=== PATIENT | female | born 1995 | race Caucasian/White ===

== ENCOUNTER 2020-10-21 06:29 | Inpatient (IN) | payer OTHER, MEDICAID ==
[2020-10-21] MEDS ORDERED: Nalbuphine 10 MG/1 ML Vial IVPUSH PRN (07:17)
[2020-10-21] MEDS ORDERED: Ondansetron 4 MG/2 ML SDV IVPUSH PRN ×3 (07:17→15:11)
[2020-10-21] MEDS ORDERED: Misoprostol 25 MCG (1/4 of 100 MCG) Tab VAG PRN (07:17)
[2020-10-21] MEDS ORDERED: Sodium Chloride 0.9% 10 ML Syringe FLUSH PRN (07:17)
--- NOTE | 2020-10-21 07:20 | PCM.LDHP ---
L&D History of Present Illness - General Date of Service: 10/21/20 Admit Problem/Dx: Patient Status Order with Admit Dx/Problem 10/21/20 07:17 Patient Status [ADT] Routine Admission Diagnosis/Problem Admission Diagnosis/Problem Source of Information: Patient History Limitations: Reports: No Limitations - History of Present Illness Introduction:: Patient is a 25 y/o at 41 0/7 wks who presents in labor. Was supposed to come for induction this AM, but started to labor overnight. Doing well. - Related Data Allergies/Adverse Reactions: Allergies Allergy/AdvReac Type Severity Reaction Status Date / Time cefaclor [From Ceclor] Allergy Hives Verified 10/21/20 08:02 Past Medical History HEENT History: Reports: Hard of Hearing : 1 Para: 0 LMP (Approximate): Psychiatric History: Reports: Depression - Past Surgical History Other Surgical History Comment: No past surgical history Social & Family History - Tobacco Use Tobacco Use Status *Q: Never Tobacco User - Alcohol Use Alcohol Use History: No - Recreational Drug Use Recreational Drug Use: No H&P Review of Systems - Review of Systems: Review Of Systems: See Below General: Reports: No Symptoms Pulmonary: Reports: No Symptoms Cardiovascular: Reports: No Symptoms Gastrointestinal: Reports: No Symptoms Genitourinary: Reports: No Symptoms Musculoskeletal: Reports: No Symptoms Psychiatric: Reports: No Symptoms L&D Exam - Exam Exam: See Below - OB Specific Contraction Intensity: Moderate to Strong Movement: Active Heart Tones: Present Heart Tones per Min: 150 Heart Rate (FHR) Variability: Moderate (6-25 bmp) Presentation: Vertex - Richardson Score Richardson Score Cervix Position: Anterior Richardson Score Consistency: Soft Richardson Score Effacement: >80% Richardson Score Dilation: > 5 cm Richardson Score 's Station: -1 ,0 Richardson Score Total: 12 - Exam General: Alert, Oriented, Cooperative Lungs: Clear to Auscultation, Normal Respiratory Effort Cardiovascular: Regular Rate, Regular Rhythm GI/Abdominal Exam: Soft, Non-Tender Genitourinary: Normal external exam Extremities: Normal Inspection Skin: Warm, Dry, Intact - Patient Data Result Diagrams: 10/21/20 07:40 - Problem List (1) 41 weeks gestation of SNOMED Code(s): 03967377 ICD Code: Z3A.41 - 41 WEEKS GESTATION OF Status: Acute Current Visit: Yes (2) Normal labor SNOMED Code(s): 81242363 ICD Code: O80 - ENCOUNTER FOR FULL-TERM UNCOMPLICATED DELIVERY; Z37.9 - OUTCOME OF DELIVERY, UNSPECIFIED Status: Acute Current Visit: Yes Problem List Initiated/Reviewed/Updated: Yes Orders Last 24hrs: Active Orders 24 hr Category Date Time Status Patient Status [ADT] Routine ADT 10/21/20 07:17 Ordered Communication Order [RC] ASDIRECTED Care 10/21/20 07:17 Ordered Communication Order [RC] ASDIRECTED Care 10/21/20 07:17 Ordered Communication Order [RC] ASDIRECTED Care 10/21/20 07:17 Ordered Heart Tones [RC] ASDIRECTED Care 10/21/20 07:17 Ordered Monitoring [RC] INTERMITTENT Care 10/21/20 07:17 Ordered Non Stress Test [RC] PER UNIT ROUTINE Care 10/21/20 07:17 Ordered Notify Provider [RC] ASDIRECTED Care 10/21/20 07:17 Ordered Notify Provider [RC] PRN Care 10/21/20 07:17 Ordered Peripheral IV Care [RC] . DIRECTED Care 10/21/20 07:17 Ordered Vaginal Exam [RC] ASDIRECTED Care 10/21/20 07:17 Ordered Vital Signs [RC] ASDIRECTED Care 10/21/20 07:17 Ordered Regular Diet [DIET] Diet 10/21/20 Breakfast Ordered CBC W/O DIFF,HEMOGRAM [HEME] Routine Lab 10/21/20 07:17 Ordered CORONAVIRUS COVID-19 YEFRI [MOLEC] Stat Lab 10/21/20 07:19 Ordered RAPID PLASMA REAGIN,RPR [CHEM] Routine Lab 10/21/20 07:17 Ordered TYPE AND SCREEN [BBK] Routine Lab 10/21/20 07:17 Ordered Lactated Ringers [Ringers, Lactated] 1,000 ml Med 10/21/20 07:30 Ordered IV ASDIRECTED Nalbuphine [Nubain] Med 10/21/20 07:17 Ordered 10 mg IVPUSH Q2H PRN Ondansetron [Zofran] Med 10/21/20 07:17 Ordered 4 mg IVPUSH Q4H PRN Oxytocin/Lactated Ringers [Pitocin in LR 10 Units/1,000 Med 10/21/20 07:30 Ordered ML] 10 unit in 1,000 ml IV .CONTINUOUS Oxytocin/Lactated Ringers [Pitocin in LR 10 Units/1,000 Med 10/21/20 07:30 Ordered ML] 10 unit in 1,000 ml IV TITRATE Sodium Chloride 0.9% [Saline Flush] Med 10/21/20 07:17 Ordered 10 ml FLUSH ASDIRECTED PRN miSOPROStoL [Cytotec] Med 10/21/20 07:17 Ordered 25 mcg VAG Q4H PRN Electronic Heart Tones Ext w TOCO [WOMSER] Ot 10/21/20 07:17 Ordered Routine Electronic Heart Tones Internal [WOMSER] Per Unit Ot 10/21/20 07:17 Ordered Routine Medication Administration Instruction [OM.PC] Ot 10/21/20 07:30 Ordered ASDIRECTED Peripheral IV Insertion Adult [OM.PC] Routine Ot 10/21/20 07:17 Ordered Resuscitation Status Routine Resus Stat 10/21/20 07:17 Ordered Assessment/Plan Comment:: * Labs done * GBS negative * Epidural for pain management * Anticipate
[2020-10-21] MEDS ORDERED: Oxytocin/Lactated Ringers 10 UNIT/1,000 ML BAG IV SCH ×2 (07:30)
[2020-10-21] MEDS: Lactated Ringers 1,000 ML IV SCH ×5 (07:50→11:30)
[2020-10-21] MEDS ORDERED: fentaNYL 100 MCG/2 ML SDV EPIDUR PRN (07:57)
[2020-10-21] MEDS ORDERED: ePHEDrine 50 MG/ML SDV IVPUSH PRN ×3 (07:57→18:08)
[2020-10-21] MEDS ORDERED: Bupivacaine/fentaNYL/NS 100 ML Bag EPIDUR SCH (08:00)
--- NOTE | 2020-10-21 08:17 | PCM.PREANE ---
Preanesthetic Assessment - Procedure Proposed Procedure: Epidural - Anesthesia/Transfusion/Family Hx Anesthesia History: No Prior Anesthesia Family History of Anesthesia Reaction: No Transfusion History: No Prior Transfusion(s) Intubation History: Unknown - Review of Systems General: No Symptoms Pulmonary: No Symptoms Cardiovascular: No Symptoms (history of heart murmur) Gastrointestinal: No Symptoms Neurological: No Symptoms Other: Reports: None - Physical Assessment NPO Status Date: 10/20/20 NPO Status Time: 20:00 Vital Signs: HR:63 Sat: 99% Temp: 97.7 Resp: 20 B/P: 120/66 Height: 1.52 m Weight: 54.885 kg ASA Class: 2 Mental Status: Alert & Oriented x3 Airway Class: Mallampati = 2 Dentition: Reports: Normal Dentition, Caries Thyro-Mental Finger Breadths: 3 Mouth Opening Finger Breadths: 3 ROM/Head Extension: Full Lungs: Clear to Auscultation, Normal Respiratory Effort Cardiovascular: Regular Rate, Regular Rhythm, No Murmurs - Lab Values: Laboratory Last Values WBC 15.99 K/mm3 (3.98-10.04) H 10/21/20 07:40 RBC 4.50 M/mm3 (3.98-5.22) 10/21/20 07:40 Hgb 12.9 gm/dl (11.2-15.7) 10/21/20 07:40 Hct 37.8 % (34.1-44.9) 10/21/20 07:40 MCV 84.0 fl (79.4-94.8) 10/21/20 07:40 MCH 28.7 pg (25.6-32.2) 10/21/20 07:40 MCHC 34.1 g/dl (32.2-35.5) 10/21/20 07:40 RDW Std Deviation 39.7 fL (36.4-46.3) 10/21/20 07:40 Plt Count 256 K/mm3 (182-369) 10/21/20 07:40 MPV 10.3 fl (9.4-12.3) 10/21/20 07:40 Above labs reviewed and noted and within acceptable ranges to proceed with epidural. - Allergies Allergies/Adverse Reactions: Allergies Allergy/AdvReac Type Severity Reaction Status Date / Time cefaclor [From [facility]] Allergy Hives Verified 10/21/20 08:02 - Anesthesia Plan Pre-Op Medication Ordered: None - Acknowledgements Anesthesia Type Planned: Epidural Pt an Appropriate Candidate for the Planned Anesthesia: Yes Alternatives and Risks of Anesthesia Discussed w Pt/Guardian: Yes Pt/Guardian Understands and Agrees with Anesthesia Plan: Yes PreAnesthesia Questionnaire - CURRENT (IN HOUSE) MEDS Current Meds: Current Medications Ephedrine Sulfate (Ephedrine 50 Mg/Ml Sdv) 5 mg IVPUSH ASDIRECTED PRN PRN Reason: Hypotension Fentanyl (Fentanyl 100 Mcg/2 Ml Sdv) 100 mcg EPIDUR Q3H PRN PRN Reason: Pain Last Admin: 10/21/20 08:12 Dose: 100 mcg Documented by: Fentanyl/Bupivacaine HCl (Bupivacaine/Fentanyl/Ns 100 Ml Bag) 100 ml EPIDUR ASDIRECTED LASHAUN Last Admin: 10/21/20 08:12 Dose: 100 ml Documented by: Oxytocin/Lactated Ringer's (Pitocin In Lr 10 Units/1,000 Ml) 10 unit in 1,000 mls @ 12 mls/hr IV TITRATE LASHAUN; Protocol Oxytocin/Lactated Ringer's (Pitocin In Lr 10 Units/1,000 Ml) 10 unit in 1,000 mls @ 500 mls/hr IV .CONTINUOUS LASHAUN Lactated Ringer's (Ringers, Lactated) 1,000 mls @ 40 mls/hr IV ASDIRECTED LASHAUN Last Admin: 10/21/20 08:13 Dose: 40 mls/hr Documented by: Miscellaneous Medication (Phenylephrine Hcl In 0.9% Nacl 1 Mg/10 Ml Syringe) 0.1 mg IVPUSH Q10M PRN PRN Reason: Hypotension Misoprostol (Misoprostol 25 Mcg (1/4 Of 100 Mcg) Tab) 25 mcg VAG Q4H PRN PRN Reason: cervical ripening Nalbuphine HCl (Nalbuphine 10 Mg/1 Ml Vial) 10 mg IVPUSH Q2H PRN PRN Reason: Pain Ondansetron HCl (Ondansetron 4 Mg/2 Ml Sdv) 4 mg IVPUSH Q4H PRN PRN Reason: Nausea/Vomiting Ondansetron HCl (Ondansetron 4 Mg/2 Ml Sdv) 4 mg IVPUSH ONETIME PRN PRN Reason: Nausea/Vomiting Sodium Chloride (Sodium Chloride 0.9% 10 Ml Syringe) 10 ml FLUSH ASDIRECTED PRN PRN Reason: Keep Vein Open
--- NOTE | 2020-10-21 13:06 | PCM.SN.2 ---
- Free Text/Narrative Note: 1245 AROM done at about 0915 and patient thought to be 9 cm, but with BBOW. After ROM patient thought to be more 8 cm on RN exam. Moved to hands/knees and now thought to be 9 cm, but more noted on patient's left and anterior. Some intermittent late decelerations and variables. Will rotate back to hands/knees and start 1 of pitocin to try and have rest of cervix dilate Tamy Mauro MD
[2020-10-21] MEDS ORDERED: Clindamycin Phosphate in D5W 900 MG in Premix Bag 1 BAG IV ONE ×2 (14:16)
[2020-10-21] MEDS ORDERED: Citric Acid/Sodium Citrate Solution 30 ML Cup PO ONE (14:23)
[2020-10-21] MEDS ORDERED: Metoclopramide 10 MG/2 ML SDV IVPUSH ONE (14:23)
[2020-10-21] MEDS ORDERED: Lactated Ringers 2,000 ML ONE (14:26)
[2020-10-21] MEDS ORDERED: Ondansetron 4 MG/2 ML SDV ONE (14:26)
[2020-10-21] MEDS ORDERED: Lidocaine 2% with EPINEPHrine 1:200,000 20 ML SDV ONE (14:26)
[2020-10-21] MEDS ORDERED: Oxytocin 10 Units/1 ML SDV ONE (14:26)
[2020-10-21] MEDS ORDERED: Ketorolac 30 MG/ML SDV ONE (14:26)
[2020-10-21] MEDS ORDERED: Morphine PF 10 MG/10 ML SDV ONE (14:27)
[2020-10-21] MEDS ORDERED: fentaNYL 100 MCG/2 ML SDV ONE (14:27)
[2020-10-21] MEDS ORDERED: Gentamicin 40 MG/ML 2 ML Vial ONE (14:28)
[2020-10-21] MEDS ORDERED: Azithromycin 500 MG in Sodium Chloride 0.9% 250 ML IV ONE (14:40)
[2020-10-21] MEDS ORDERED: SODIUM CHLORIDE 0.9% IV ONE (15:00)
[2020-10-21] MEDS ORDERED: Bupivacaine 0.25% 10 ML SDV ONE (15:00)
[2020-10-21] MEDS ORDERED: GENTAMICIN IV ONE (15:00)
[2020-10-21] MEDS ORDERED: fentaNYL 100 MCG/2 ML SDV IVPUSH PRN (15:11)
[2020-10-21] MEDS ORDERED: HYDROmorphone 0.5 MG/0.5 ML Syringe IVPUSH PRN (15:11)
[2020-10-21] MEDS ORDERED: diphenhydrAMINE 50 MG/ML SDV IVPUSH PRN ×2 (15:11→18:08)
--- NOTE | 2020-10-21 15:38 | PCM.POSTAN ---
POST ANESTHESIA ASSESSMENT - MENTAL STATUS Mental Status: Alert - VITAL SIGNS Vital Signs: Last Vital Signs Temp 98.2 10/21/20 1531 Pulse 113 10/21/20 1531 Resp 23 10/21/20 1531 BP 126/46 10/21/20 1531 Pulse Ox 99% 10/21/20 1531 - RESPIRATORY Respiratory Status: Respiratory Rate WNL, Airway Patent, O2 Saturation Stable - CARDIOVASCULAR CV Status: Pulse Rate WNL, Blood Pressure Stable - GASTROINTESTINAL GI Status: No Symptoms - POST OP HYDRATION Hydration Status: Adequate & Stable
--- NOTE | 2020-10-21 15:39 | PCM.OPNOTE ---
- General Post-Op/Procedure Note Date of Surgery/Procedure: 10/21/20 Operative Procedure(s): Primary low transverse Findings: Baby boy with weight of 7 lbs 5 oz. APGARS of 1 and 8. Normal appearance of uterus, fallopian tubes, and ovaries . Pre Op Diagnosis: 41 0/7 wks. NRFS. Failed VAVD Post-Op Diagnosis: Same Anesthesia Technique: Epidural Primary Surgeon: Tamy Mauro Secondary Surgeon: Fermin Diaz Anesthesia Provider: Hazel Lopez Reason Ac/Dc Rewinder Was Necessary: Speed and safety of procedure Pathology: Cord gas obtained. Cord blood obtained. Placenta discarded Fluid Replacement, Intraop: 1,050 Output, Urine Amount: 75 EBL in mLs: 500 Complications: None Condition: Good Free Text/Narrative:: The risks, benefits, indications, potential complications, and alternatives were explained to the patient and informed consent obtained. After induction of anesthesia, the patient was placed in a supine position and then draped and prepped in the usual sterile manner. A Pfannenstiel incision was made and carried down through the subcutaneous tissue to the fascia. Fascial incision was made and extended transversely. The fascia was from the underlying rectus tissue superiorly and inferiorly. The peritoneum was identified and entered. Peritoneal incision was extended longitudinally. The utero-vesical peritoneal reflection was incised transversely and the bladder flap was bluntly freed from the lower uterine segment. A low transverse uterine incision was made sharply with a scalpel and extended bluntly in a cephalocaudad direction. A hand placed around head and baby lifted to hysterotomy. Baby did lose tone with this action and began to rotate away from hysterotomy in a clockwise fashion. Attempted once to bring baby back down to hysterotomy, but unsuccessful and so continued to rotate baby and then grasped a foot and delivered baby with standard breech maneuvers. Cord clamped and cut. Baby handed to awaiting Oxyacetylene Cutter/RN. Cord segment obtained for cord gas. Cord blood obtained. The placenta was removed intact and appeared normal. The uterus was exteriorized and cleared of clots. The uterine outline, tubes and ovaries appeared normal. The uterine incision was closed with running locked sutures of 0 Vicryl. Hemostasis was obtained with a second imbricating layer of 0 Vicryl. The uterus was then placed back into the abdomen. The infracolic gutters were cleared of blood clots. Slight oozing noted across hysterotomy. Tyson seal placed across hysterotomy. Hemostasis noted. The fascia was then reapproximated with running sutures of 0 Vicryl. The subcutaneous tissue was irrigated with sterile warm normal saline, hemostasis obtained with cautery. This layer was also closed with a running 0 Vicryl. The skin was reapproximated with running Subcuticular 4-0 Monocryl suture. It was then sealed with Dermabond. Instrument, sponge, and needle counts were correct prior the abdominal closure and at the conclusion of the case.
--- NOTE | 2020-10-21 16:48 | PCM.SN.2 ---
- Free Text/Narrative Note: 1530 (late entry) Patient found to be complete, but with late and variable decelerations noted. Patient began pushing. Decelerations intermittent, but did continue and so OR crew called at 1401 to be on stand by. SVE showed patient to be c/c/+2 station with good pushing effort. Given decelerations attempt made at assisted VAVD. Mushroom cup applied at 1411. Assistance given with the next 2 contractions and pop off occurred at 1415. Vacuum reapplied and with next contraction assistance given. Pop off occurred at 1418. Total pressure 550 mm Hg. head brought down significantly, but still with decelerations noted. Patient encouraged to continue pushing while Clindamycin and Gentamicin given. Unfortunately given tracing did not feel enough time to allow patient to continue to push on her own. Reviewed risks/benefits of delivery and she agreed to proceed. Moved to OR at 1429. See operative note for delivery. Tamy Mauro MD
[2020-10-21] MEDS ORDERED: Dextrose 5%-Lactated Ringers 1,000 ML IV SCH (18:08)
[2020-10-21] MEDS ORDERED: Acetaminophen/oxyCODONE 325-5 MG Tab PO PRN (18:08)
[2020-10-21] MEDS: Ketorolac 30 MG/ML SDV IVPUSH SCH (20:49)
[2020-10-22] MEDS: Ketorolac 30 MG/ML SDV IVPUSH SCH ×2 (03:35→09:15)
--- NOTE | 2020-10-22 08:53 | PCM.PNPP ---
- General Info Date of Service: 10/22/20 Functional Status: Reports: Pain Controlled, Tolerating Diet, Ambulating - Review of Systems General: Reports: No Symptoms Pulmonary: Reports: No Symptoms Cardiovascular: Reports: No Symptoms Gastrointestinal: Reports: Abdominal Pain (managed with medications ) Genitourinary: Reports: No Symptoms Musculoskeletal: Reports: No Symptoms Neurological: Reports: No Symptoms - Patient Data Vital Signs - Most Recent: Last Vital Signs Temp 36.6 C 10/22/20 00:11 Pulse 90 10/22/20 07:00 Resp 16 10/22/20 07:00 BP 92/54 L 10/22/20 01:36 Pulse Ox 99 10/22/20 07:00 Weight - Most Recent: 54.885 kg I&O - Last 24 Hours: Intake & Output 10/21/20 10/22/20 10/22/20 22:59 06:59 14:59 Intake Total 1800 1002 Output Total 1455 2300 275 Balance 283 -6447 -473 Lab Results - Last 24 Hours: Laboratory Results - last 24 hr 10/21/20 10/21/20 10/22/20 Range/Units 07:10 14:55 05:15 WBC 18.81 H (3.98-10.04) K/mm3 RBC 3.15 L (3.98-5.22) M/mm3 Hgb 9.1 L D (11.2-15.7) gm/dl Hct 27.0 L (34.1-44.9) % MCV 85.7 (79.4-94.8) fl MCH 28.9 (25.6-32.2) pg MCHC 33.7 (32.2-35.5) g/dl RDW Std Deviation 39.5 (36.4-46.3) fL Plt Count 188 (182-369) K/mm3 MPV 10.5 (9.4-12.3) fl Cord ABG pH 6.86 L (7.22-7.32) Cord ABG pCO2 106.6 H (42-58) Cord ABG pO2 9 L (12-24) Cord ABG HCO3 18 L (24-26) Cord ABG Base Excess -21.9 L (-5.5-0.1) Cord VBG pH 7.05 L (7.28-7.40) Cord VBG pCO2 64.5 H (32.8-38.6) Cord VBG pO2 35 H (28-32) Cord VBG HCO3 16.9 L (19-24) Cord VBG Base Excess -16.1 L (-4.4-0.4) Blood Type A NEGATIVE Gel Antibody Screen Negative Rhogam Indicated Yes, baby rh pos H Med Orders - Current: Current Medications Diphenhydramine HCl (Diphenhydramine 50 Mg/Ml Sdv) 25 mg IVPUSH Q6H PRN PRN Reason: pruritis Diphenhydramine HCl (Diphenhydramine 50 Mg/Ml Sdv) 25 mg IVPUSH Q6H PRN PRN Reason: Itching or Nausea Docusate Sodium (Docusate Sodium 100 Mg Cap) 100 mg PO Q12H PRN PRN Reason: Constipation Ephedrine Sulfate (Ephedrine 50 Mg/Ml Sdv) 5 mg IVPUSH ASDIRECTED PRN PRN Reason: Hypotension Ephedrine Sulfate (Ephedrine 50 Mg/Ml Sdv) 5 mg IVPUSH SEECOMMENT PRN PRN Reason: Other Fentanyl (Fentanyl 100 Mcg/2 Ml Sdv) 50 mcg IVPUSH Q20M PRN PRN Reason: Pain Hydromorphone HCl (Hydromorphone 0.5 Mg/0.5 Ml Syringe) 0.5 mg IVPUSH Q10M PRN PRN Reason: Pain (severe 7-10) Ibuprofen (Ibuprofen 600 Mg Tab) 600 mg PO Q6H PRN PRN Reason: mild pain or fever Ketorolac Tromethamine (Ketorolac 30 Mg/Ml Sdv) 30 mg IVPUSH Q6H LASHAUN Stop: 10/22/20 09:16 Last Admin: 10/22/20 03:35 Dose: 30 mg Documented by: Miscellaneous Medication (Phenylephrine Hcl In 0.9% Nacl 1 Mg/10 Ml Syringe) 0.1 mg IVPUSH Q10M PRN PRN Reason: Hypotension Ondansetron HCl (Ondansetron 4 Mg/2 Ml Sdv) 4 mg IVPUSH ONETIME PRN PRN Reason: Nausea/Vomiting Oxycodone/Acetaminophen (Acetaminophen/Oxycodone 325-5 Mg Tab) 1 tab PO Q4H PRN PRN Reason: Pain (moderate 4-6) Oxycodone/Acetaminophen (Acetaminophen/Oxycodone 325-5 Mg Tab) 2 tab PO Q4H PRN PRN Reason: Pain (severe 7-10) Discontinued Medications Citric Acid/Sodium Citrate (Citric Acid/Sodium Citrate Solution 30 Ml Cup) 30 ml PO ONETIME ONE Stop: 10/21/20 14:24 Last Admin: 10/21/20 14:30 Dose: 30 ml Documented by: Ephedrine Sulfate (Ephedrine 50 Mg/Ml Sdv) 5 mg IVPUSH ASDIRECTED PRN PRN Reason: Hypotension Last Admin: 10/21/20 09:26 Dose: 5 mg Documented by: Fentanyl (Fentanyl 100 Mcg/2 Ml Sdv) 100 mcg EPIDUR Q3H PRN PRN Reason: Pain Last Admin: 10/21/20 08:12 Dose: 100 mcg Documented by: Fentanyl (Fentanyl 100 Mcg/2 Ml Sdv) Confirm Administered Dose 100 mcg .ROUTE .STK-MED ONE Stop: 10/21/20 14:28 Fentanyl/Bupivacaine HCl (Bupivacaine/Fentanyl/Ns 100 Ml Bag) 100 ml EPIDUR ASDIRECTED [facility] Last Admin: 10/21/20 08:12 Dose: 100 ml Documented by: Gentamicin Sulfate (Pharmacy To Dose - Gentamicin) 1 dose .XX ASDIRECTED [facility] Gentamicin Sulfate (Gentamicin 40 Mg/Ml 2 Ml Vial) Confirm Administered Dose 80 mg .ROUTE .STK-MED ONE Stop: 10/21/20 14:29 Last Admin: 10/21/20 19:44 Dose: Not Given Documented by: Oxytocin/Lactated Ringer's (Pitocin In Lr 10 Units/1,000 Ml) 10 unit in 1,000 mls @ 12 mls/hr IV TITRATE LASHAUN; Protocol Last Admin: 10/21/20 13:27 Dose: 2 munits/min, 12 mls/hr Documented by: Oxytocin/Lactated Ringer's (Pitocin In Lr 10 Units/1,000 Ml) 10 unit in 1,000 mls @ 500 mls/hr IV .CONTINUOUS LASHAUN Lactated Ringer's (Ringers, Lactated) 1,000 mls @ 40 mls/hr IV ASDIRECTED LASHAUN Last Admin: 10/21/20 11:30 Dose: 40 mls/hr Documented by: Clindamycin Phosphate 900 mg/ (Premix) 50 mls @ 100 mls/hr IV ONETIME ONE Stop: 10/21/20 14:45 Last Admin: 10/21/20 14:17 Dose: 100 mls/hr Documented by: Lactated Ringer's (Ringers, Lactated) Confirm Administered Dose 2,000 mls @ as directed .ROUTE .STK-MED ONE Stop: 10/21/20 14:27 Gentamicin Sulfate 275 mg/ (Sodium Chloride) 106.875 mls @ 106.875 mls/hr IV ONETIME ONE Stop: 10/21/20 15:59 Last Admin: 10/21/20 14:30 Dose: 106.875 mls/hr Documented by: Dextrose/Lactated Ringer's (Dextrose 5%-Lactated Ringers) 1,000 mls @ 125 mls/hr IV ASDIRECTED LASHAUN Stop: 10/22/20 02:07 Last Admin: 10/21/20 20:53 Dose: 125 mls/hr Documented by: Azithromycin 500 mg/ Sodium (Chloride) 250 mls @ 250 mls/hr IV ONETIME ONE Stop: 10/21/20 15:39 Last Admin: 10/21/20 14:42 Dose: 250 mls/hr Documented by: Ketorolac Tromethamine (Ketorolac 30 Mg/Ml Sdv) Confirm Administered Dose 30 mg .ROUTE .STK-MED ONE Stop: 10/21/20 14:27 Lidocaine/Epinephrine (Lidocaine 2% With Epinephrine 1:200,000 20 Ml Sdv) Confirm Administered Dose 20 ml .ROUTE .STK-MED ONE Stop: 10/21/20 14:27 Metoclopramide HCl (Metoclopramide 10 Mg/2 Ml Sdv) 10 mg IVPUSH ONETIME ONE Stop: 10/21/20 14:24 Last Admin: 10/21/20 14:30 Dose: 10 mg Documented by: Miscellaneous Medication (Phenylephrine Hcl In 0.9% Nacl 1 Mg/10 Ml Syringe) 0.1 mg IVPUSH Q10M PRN PRN Reason: Hypotension Miscellaneous Medication (Phenylephrine Hcl In 0.9% Nacl 1 Mg/10 Ml Syringe) Confirm Administered Dose 1 mg .ROUTE .STK-MED ONE Stop: 10/21/20 14:27 Miscellaneous Medication (Phenylephrine Hcl In 0.9% Nacl 1 Mg/10 Ml Syringe) Confirm Administered Dose 1 mg .ROUTE .STK-MED ONE Stop: 10/21/20 15:19 Misoprostol (Misoprostol 25 Mcg (1/4 Of 100 Mcg) Tab) 25 mcg VAG Q4H PRN PRN Reason: cervical ripening Morphine Sulfate (Morphine Pf 10 Mg/10 Ml Sdv) Confirm Administered Dose 10 mg .ROUTE .STK-MED ONE Stop: 10/21/20 14:28 Nalbuphine HCl (Nalbuphine 10 Mg/1 Ml Vial) 10 mg IVPUSH Q2H PRN PRN Reason: Pain Ondansetron HCl (Ondansetron 4 Mg/2 Ml Sdv) 4 mg IVPUSH Q4H PRN PRN Reason: Nausea/Vomiting Ondansetron HCl (Ondansetron 4 Mg/2 Ml Sdv) 4 mg IVPUSH ONETIME PRN PRN Reason: Nausea/Vomiting Ondansetron HCl (Ondansetron 4 Mg/2 Ml Sdv) Confirm Administered Dose 4 mg .ROUTE .STK-MED ONE Stop: 10/21/20 14:27 Oxytocin (Oxytocin 10 Units/1 Ml Sdv) Confirm Administered Dose 10 unit .ROUTE .STK-MED ONE Stop: 10/21/20 14:27 Sodium Chloride (Sodium Chloride 0.9% 10 Ml Syringe) 10 ml FLUSH ASDIRECTED PRN PRN Reason: Keep Vein Open - Infant Interaction Infant Disposition, : to Nursery Feeding: Attempted ; Nursed Fair/Poor, Bottle Fed Infant Support Person: Significant Other - Recovery Exam Fundal Tone: Firm Fundal Level: At Umbilicus Fundal Placement: Midline Lochia Amount: Small Lochia Color: Rubra/Red Perineum Description: Edematous - Exam General: Alert, Oriented, Cooperative Lungs: Clear to Auscultation, Normal Respiratory Effort Cardiovascular: Regular Rate, Regular Rhythm GI/Abdominal Exam: Soft, Tender (appropriate ) Extremities: Normal Inspection Skin: Warm, Dry, Intact Wound/Incisions: Healing Well, No Drainage - Problem List & Annotations (1) 41 weeks gestation of SNOMED Code(s): 68930931 Code(s): Z3A.41 - 41 WEEKS GESTATION OF Status: Acute Current Visit: Yes (2) Normal labor SNOMED Code(s): 80011728 Code(s): O80 - ENCOUNTER FOR FULL-TERM UNCOMPLICATED DELIVERY; Z37.9 - OUTCOME OF DELIVERY, UNSPECIFIED Status: Acute Current Visit: Yes (3) Non-reassuring status SNOMED Code(s): 098224359 Code(s): TKC1344 - Status: Acute Current Visit: Yes (4) Failed vacuum extraction, delivered, current hospitalization SNOMED Code(s): 092475567, 602817876 Code(s): O66.5 - ATTEMPTED APPLICATION OF VACUUM EXTRACTOR AND FORCEPS Status: Acute Current Visit: Yes (5) S/P primary low transverse SNOMED Code(s): 302393571, 01285583, 403081544, 430407590, 537951774 Code(s): Z98.891 - HISTORY OF UTERINE SCAR FROM PREVIOUS SURGERY Status: Acute Current Visit: Yes - Problem List Review Problem List Initiated/Reviewed/Updated: Yes - My Orders Last 24 Hours: My Active Orders 10/21/20 Dinner Regular Diet [DIET] 10/21/20 18:08 Acetaminophen/oxyCODONE [Percocet 325-5 MG] 1 tab PO Q4H PRN Acetaminophen/oxyCODONE [Percocet 325-5 MG] 2 tab PO Q4H PRN Docusate Sodium [Colace] 100 mg PO Q12H PRN diphenhydrAMINE [Benadryl] 25 mg IVPUSH Q6H PRN ePHEDrine [ePHEDrine sulfate] 5 mg IVPUSH SEECOMMENT PRN 10/21/20 18:08 Antiembolic Devices [RC] .PRN Communication Order [RC] 12,00 Communication Order [RC] PER UNIT ROUTINE Intake and Output [RC] Q4HR May Shower [RC] PER UNIT ROUTINE Notify Provider Intake and Out [RC] 00,12 RT Incentive Spirometry [RC] Q2HWA Assess Lochia [WOMSER] Per Unit Routine Assess Uterine Involution [WOMSER] Per Unit Routine Breast Pump [WOMSER] Per Unit Routine Heat Therapy [OM.PC] Per Unit Routine Peripheral IV Discontinue [OM.PC] Routine Sequential Compression Device [OM.PC] Per Unit Routine 10/21/20 21:15 Ketorolac [Toradol] 30 mg IVPUSH Q6H 10/22/20 15:00 Ibuprofen [Motrin] 600 mg PO Q6H PRN 10/22/20 15:41 Urinary Catheter Removal [RC] DAILY - Assessment Assessment:: POD#1 - Plan Plan:: * Routine cares * Breast and bottle feeding * Rhogam today * Blood count with greater than expected drop today. Will repeat tomorrow. Good UOP and VS stable * Discharge pending clinical course
--- NOTE | 2020-10-22 11:28 | PCM48HPAN ---
Post Anesthesia Note - EVALUATION WITHIN 48HRS OF ANESTHETIC Vital Signs in Normal Range: Yes Patient Participated in Evaluation: Yes Respiratory Function Stable: Yes Airway Patent: Yes Cardiovascular Function Stable: Yes Hydration Status Stable: Yes Pain Control Satisfactory: Yes Nausea and Vomiting Control Satisfactory: Yes Mental Status Recovered: Yes Vital Signs: Last Vital Signs Temp 97.9 F 10/22/20 00:11 Pulse 90 10/22/20 07:00 Resp 16 10/22/20 09:00 BP 92/54 L 10/22/20 01:36 Pulse Ox 100 10/22/20 09:00
[2020-10-22] MEDS: Acetaminophen/oxyCODONE 325-5 MG Tab PO PRN (19:33)
[2020-10-22] MEDS: Ibuprofen 600 MG Tab PO PRN (19:34)
[2020-10-22] MEDS: Docusate Sodium 100 MG Cap PO PRN (19:35)
[2020-10-23] MEDS: Ibuprofen 600 MG Tab PO PRN ×4 (02:43→21:55)
[2020-10-23] MEDS: Acetaminophen/oxyCODONE 325-5 MG Tab PO PRN (02:44)
--- NOTE | 2020-10-23 07:12 | PCM.PNPP ---
- General Info Date of Service: 10/23/20 Functional Status: Reports: Pain Controlled, Tolerating Diet, Ambulating, Urinating - Review of Systems General: Reports: No Symptoms Pulmonary: Reports: No Symptoms Cardiovascular: Reports: No Symptoms Gastrointestinal: Reports: No Symptoms Genitourinary: Reports: No Symptoms Musculoskeletal: Reports: No Symptoms Neurological: Reports: No Symptoms - Patient Data Vital Signs - Most Recent: Last Vital Signs Temp 36.6 C 10/23/20 02:58 Pulse 84 10/23/20 02:58 Resp 15 10/23/20 02:58 BP 118/67 10/23/20 02:58 Pulse Ox 97 10/23/20 02:58 Weight - Most Recent: 54.885 kg I&O - Last 24 Hours: Intake & Output 10/22/20 10/23/20 10/23/20 22:59 06:59 14:59 Intake Total 320 Output Total 500 Balance -180 Lab Results - Last 24 Hours: Laboratory Results - last 24 hr 10/23/20 Range/Units 05:45 WBC 12.62 H (3.98-10.04) K/mm3 RBC 3.15 L (3.98-5.22) M/mm3 Hgb 9.1 L (11.2-15.7) gm/dl Hct 27.4 L (34.1-44.9) % MCV 87.0 (79.4-94.8) fl MCH 28.9 (25.6-32.2) pg MCHC 33.2 (32.2-35.5) g/dl RDW Std Deviation 41.1 (36.4-46.3) fL Plt Count 211 (182-369) K/mm3 MPV 10.0 (9.4-12.3) fl Med Orders - Current: Current Medications Diphenhydramine HCl (Diphenhydramine 50 Mg/Ml Sdv) 25 mg IVPUSH Q6H PRN PRN Reason: Itching or Nausea Docusate Sodium (Docusate Sodium 100 Mg Cap) 100 mg PO Q12H PRN PRN Reason: Constipation Last Admin: 10/22/20 19:35 Dose: 100 mg Documented by: Ephedrine Sulfate (Ephedrine 50 Mg/Ml Sdv) 5 mg IVPUSH SEECOMMENT PRN PRN Reason: Other Ibuprofen (Ibuprofen 600 Mg Tab) 600 mg PO Q6H PRN PRN Reason: mild pain or fever Last Admin: 10/23/20 02:43 Dose: 600 mg Documented by: Oxycodone/Acetaminophen (Acetaminophen/Oxycodone 325-5 Mg Tab) 1 tab PO Q4H PRN PRN Reason: Pain (moderate 4-6) Last Admin: 10/23/20 02:44 Dose: 1 tab Documented by: Oxycodone/Acetaminophen (Acetaminophen/Oxycodone 325-5 Mg Tab) 2 tab PO Q4H PRN PRN Reason: Pain (severe 7-10) Last Admin: 10/22/20 14:28 Dose: 2 tab Documented by: Discontinued Medications Bupivacaine HCl (Bupivacaine 0.25% 10 Ml Sdv) 10 ml .ROUTE .ST[facility]-MED ONE Stop: 10/21/20 15:01 Citric Acid/Sodium Citrate (Citric Acid/Sodium Citrate Solution 30 Ml Cup) 30 ml PO ONETIME ONE Stop: 10/21/20 14:24 Last Admin: 10/21/20 14:30 Dose: 30 ml Documented by: Diphenhydramine HCl (Diphenhydramine 50 Mg/Ml Sdv) 25 mg IVPUSH Q6H PRN PRN Reason: pruritis Ephedrine Sulfate (Ephedrine 50 Mg/Ml Sdv) 5 mg IVPUSH ASDIRECTED PRN PRN Reason: Hypotension Last Admin: 10/21/20 09:26 Dose: 5 mg Documented by: Ephedrine Sulfate (Ephedrine 50 Mg/Ml Sdv) 5 mg IVPUSH ASDIRECTED PRN PRN Reason: Hypotension Fentanyl (Fentanyl 100 Mcg/2 Ml Sdv) 100 mcg EPIDUR Q3H PRN PRN Reason: Pain Last Admin: 10/21/20 08:12 Dose: 100 mcg Documented by: Fentanyl (Fentanyl 100 Mcg/2 Ml Sdv) Confirm Administered Dose 100 mcg .ROUTE .ST[facility]-MED ONE Stop: 10/21/20 14:28 Fentanyl (Fentanyl 100 Mcg/2 Ml Sdv) 50 mcg IVPUSH Q20M PRN PRN Reason: Pain Fentanyl/Bupivacaine HCl (Bupivacaine/Fentanyl/Ns 100 Ml Bag) 100 ml EPIDUR ASDIRECTED [facility] Last Admin: 10/21/20 08:12 Dose: 100 ml Documented by: Gentamicin Sulfate (Pharmacy To Dose - Gentamicin) 1 dose .XX ASDIRECTED [facility] Gentamicin Sulfate (Gentamicin 40 Mg/Ml 2 Ml Vial) Confirm Administered Dose 80 mg .ROUTE .STK-MED ONE Stop: 10/21/20 14:29 Last Admin: 10/21/20 19:44 Dose: Not Given Documented by: Hydromorphone HCl (Hydromorphone 0.5 Mg/0.5 Ml Syringe) 0.5 mg IVPUSH Q10M PRN PRN Reason: Pain (severe 7-10) Oxytocin/Lactated Ringer's (Pitocin In Lr 10 Units/1,000 Ml) 10 unit in 1,000 mls @ 12 mls/hr IV TITRATE LASHAUN; Protocol Last Admin: 10/21/20 13:27 Dose: 2 munits/min, 12 mls/hr Documented by: Oxytocin/Lactated Ringer's (Pitocin In Lr 10 Units/1,000 Ml) 10 unit in 1,000 mls @ 500 mls/hr IV .CONTINUOUS [facility] Lactated Ringer's (Ringers, Lactated) 1,000 mls @ 40 mls/hr IV ASDIRECTED [facility] Last Admin: 10/21/20 11:30 Dose: 40 mls/hr Documented by: Clindamycin Phosphate 900 mg/ (Premix) 50 mls @ 100 mls/hr IV ONETIME ONE Stop: 10/21/20 14:45 Last Admin: 10/21/20 14:17 Dose: 100 mls/hr Documented by: Lactated Ringer's (Ringers, Lactated) Confirm Administered Dose 2,000 mls @ as directed .ROUTE .[facility] ONE Stop: 10/21/20 14:27 Gentamicin Sulfate 275 mg/ (Sodium Chloride) 106.875 mls @ 106.875 mls/hr IV ONETIME ONE Stop: 10/21/20 15:59 Last Admin: 10/21/20 14:30 Dose: 106.875 mls/hr Documented by: Dextrose/Lactated Ringer's (Dextrose 5%-Lactated Ringers) 1,000 mls @ 125 mls/hr IV ASDIRECTED [facility] Stop: 10/22/20 02:07 Last Admin: 10/21/20 20:53 Dose: 125 mls/hr Documented by: Azithromycin 500 mg/ Sodium (Chloride) 250 mls @ 250 mls/hr IV ONETIME ONE Stop: 10/21/20 15:39 Last Admin: 10/21/20 14:42 Dose: 250 mls/hr Documented by: Ketorolac Tromethamine (Ketorolac 30 Mg/Ml Sdv) Confirm Administered Dose 30 mg .ROUTE .STK-MED ONE Stop: 10/21/20 14:27 Ketorolac Tromethamine (Ketorolac 30 Mg/Ml Sdv) 30 mg IVPUSH Q6H LAS[facility]UN Stop: 10/22/20 09:16 Last Admin: 10/22/20 09:15 Dose: 30 mg Documented by: Lidocaine/Epinephrine (Lidocaine 2% With Epinephrine 1:200,000 20 Ml Sdv) Confirm Administered Dose 20 ml .ROUTE .STK-MED ONE Stop: 10/21/20 14:27 Metoclopramide HCl (Metoclopramide 10 Mg/2 Ml Sdv) 10 mg IVPUSH ONETIME ONE Stop: 10/21/20 14:24 Last Admin: 10/21/20 14:30 Dose: 10 mg Documented by: Miscellaneous Medication (Phenylephrine Hcl In 0.9% Nacl 1 Mg/10 Ml Syringe) 0.1 mg IVPUSH Q10M PRN PRN Reason: Hypotension Miscellaneous Medication (Phenylephrine Hcl In 0.9% Nacl 1 Mg/10 Ml Syringe) Confirm Administered Dose 1 mg .ROUTE .STK-MED ONE Stop: 10/21/20 14:27 Miscellaneous Medication (Phenylephrine Hcl In 0.9% Nacl 1 Mg/10 Ml Syringe) 0.1 mg IVPUSH Q10M PRN PRN Reason: Hypotension Miscellaneous Medication (Phenylephrine Hcl In 0.9% Nacl 1 Mg/10 Ml Syringe) Confirm Administered Dose 1 mg .ROUTE .STK-MED ONE Stop: 10/21/20 15:19 Misoprostol (Misoprostol 25 Mcg (1/4 Of 100 Mcg) Tab) 25 mcg VAG Q4H PRN PRN Reason: cervical ripening Morphine Sulfate (Morphine Pf 10 Mg/10 Ml Sdv) Confirm Administered Dose 10 mg .ROUTE .STK-MED ONE Stop: 10/21/20 14:28 Nalbuphine HCl (Nalbuphine 10 Mg/1 Ml Vial) 10 mg IVPUSH Q2H PRN PRN Reason: Pain Ondansetron HCl (Ondansetron 4 Mg/2 Ml Sdv) 4 mg IVPUSH Q4H PRN PRN Reason: Nausea/Vomiting Ondansetron HCl (Ondansetron 4 Mg/2 Ml Sdv) 4 mg IVPUSH ONETIME PRN PRN Reason: Nausea/Vomiting Ondansetron HCl (Ondansetron 4 Mg/2 Ml Sdv) Confirm Administered Dose 4 mg .ROUTE .STK-MED ONE Stop: 10/21/20 14:27 Ondansetron HCl (Ondansetron 4 Mg/2 Ml Sdv) 4 mg IVPUSH ONETIME PRN PRN Reason: Nausea/Vomiting Oxytocin (Oxytocin 10 Units/1 Ml Sdv) Confirm Administered Dose 10 unit .ROUTE .STK-MED ONE Stop: 10/21/20 14:27 Sodium Chloride (Sodium Chloride 0.9% 10 Ml Syringe) 10 ml FLUSH ASDIRECTED PRN PRN Reason: Keep Vein Open - Infant Interaction Infant Disposition, : to Nursery Infant Feeding: Attempted ; Nursed Fair/Poor, Bottle Fed Infant Support Person: Significant Other - Recovery Exam Fundal Tone: Firm Fundal Level: At Umbilicus Fundal Placement: Midline Lochia Amount: Scant Lochia Color: Rubra/Red Perineum Description: Intact, Minimal Bruising/Swelling Bladder Status: Voiding - Exam General: Alert, Oriented, Cooperative Lungs: Clear to Auscultation, Normal Respiratory Effort Cardiovascular: Regular Rate, Regular Rhythm GI/Abdominal Exam: Soft, Non-Tender Extremities: Normal Inspection Skin: Warm, Dry, Intact Wound/Incisions: Healing Well, No Drainage - Problem List & Annotations (1) 41 weeks gestation of SNOMED Code(s): 25884898 Code(s): Z3A.41 - 41 WEEKS GESTATION OF Status: Acute Current Visit: Yes (2) Normal labor SNOMED Code(s): 28433145 Code(s): O80 - ENCOUNTER FOR FULL-TERM UNCOMPLICATED DELIVERY; Z37.9 - OUTCOME OF DELIVERY, UNSPECIFIED Status: Acute Current Visit: Yes (3) Non-reassuring status SNOMED Code(s): 706265666 Code(s): MOW5991 - Status: Acute Current Visit: Yes (4) Failed vacuum extraction, delivered, current hospitalization SNOMED Code(s): 765156547, 692856931 Code(s): O66.5 - ATTEMPTED APPLICATION OF VACUUM EXTRACTOR AND [employer]CE[employer] S tatus: Acute Current Visit: Yes (5) S/P primary low transverse SNOMED Code(s): 446664781, 03634437, 509382714, 117579386, 231707985 Code(s): Z98.891 - HISTORY OF UTERINE SCAR FROM PREVIOUS SURGERY Status: Acute Current Visit: Yes - Problem List Review Problem List Initiated/Reviewed/Updated: Yes - My Orders Last 24 Hours: My Active Orders 10/22/20 15:00 Ibuprofen [Motrin] 600 mg PO Q6H PRN - Assessment Assessment:: POD#2 - Plan Plan:: * Routine cares * Breast and bottle feeding * S/p Rhogam * Hb stable on repeat assessment today * Discharge tomorrow
[2020-10-23] MEDS: Docusate Sodium 100 MG Cap PO PRN (15:42)
--- NOTE | 2020-10-24 06:01 | PCM.DCSUM1 ---
Discharge Summary - Discharge Data Discharge Date: 10/24/20 Discharge Disposition: Home, Self-Care 01 Condition: Good - Referral to Home Health Primary Care Physician: Missy Castillo MD - Discharge Diagnosis/Problem(s) (1) 41 weeks gestation of SNOMED Code(s): 29563324 ICD Code: Z3A.41 - 41 WEEKS GESTATION OF Status: Acute Current Visit: Yes (2) Normal labor SNOMED Code(s): 80514839 ICD Code: O80 - ENCOUNTER FOR FULL-TERM UNCOMPLICATED DELIVERY; Z37.9 - OUTCOME OF DELIVERY, UNSPECIFIED Status: Acute Current Visit: Yes (3) Non-reassuring status SNOMED Code(s): 597029748 ICD Code: [id number] - Status: Acute Current Visit: Yes (4) Failed vacuum extraction, delivered, current hospitalization SNOMED Code(s): 589527791, 407654339 ICD Code: O66.5 - ATTEMPTED APPLICATION OF V[employer]UM [employer] Status: Acute Current Visit: Yes (5) S/P primary low transverse SNOMED Code(s): 322482599, 09400627, 722242257, 828283712, 900329405 ICD Code: Z98.891 - HISTORY OF UTERINE SCAR FROM PREVIOUS SURGERY Status: Acute Current Visit: Yes - Patient Summary/Data Operative Procedure(s) Performed: Primary low transverse Consults: None Labs Pending at D/C: None Recommended Follow-up Testing/Procedures: Follow up in 3 weeks for check Hospital Course: 25 y/o at 41 0/7 wks presented in spontaneous labor. Did progress to complete dilation, but once achieved complete dilation had recurrent decelerations. Attempted VAVD was unsuccessful. See note. Was taken to OR for PLTCS. Postoperatively Shira did well and was discharged home on POD#3. Infant son did require transfer to [place] on 10/24, mom's day of discharge - Patient Instructions Diet: Regular Diet as Tolerated Activity: No Lifting Over 10 Pounds (10-15 pounds ) Activity, Other: Pelvic rest for 6 weeks Driving: Do Not Drive (While taking pain medication ) Showering/Bathing: May Shower, No Tub Bathing/Swimming Wound/Incision Care: Keep Operative Site/Wound Site Clean and Dry Notify Provider of: Fever, Increased Pain, Swelling and Redness, Drainage, Nausea and/or Vomiting - Discharge Plan *PRESCRIPTION DRUG MONITORING PROGRAM REVIEWED*: No *COPY OF PRESCRIPTION DRUG MONITORING REPORT IN PATIENT NICHO: No Prescriptions/Med Rec: Acetaminophen/oxyCODONE [Percocet 325-5 MG] 1 - 2 tab PO Q4H PRN #25 tablet PRN Reason: Pain (Severe 7-10) Home Medications: Home Meds Pnv No.95/Ferrous Fum/Folic AC [ Tablet] 1 tab PO DAILY 10/21/20 [History] Acetaminophen/oxyCODONE [Percocet 325-5 MG] 1 - 2 tab PO Q4H PRN #25 tablet 10/24/20 [Rx] Docusate Sodium [Colace] 100 mg PO Q12H PRN cap 10/24/20 [Rx] Ibuprofen [Motrin] 600 mg PO Q6H PRN tablet 10/24/20 [Rx] Patient Handouts: Keeping Your Safe and Healthy, [id number], Care After Delivery, Breast Pumping Tips, [id number] Referrals: Missy Castillo MD [Primary Care Provider] - (2 weeks check ) - Discharge Summary/Plan Comment DC Time >30 min.: No - Patient Data Vitals - Most Recent: Last Vital Signs Temp 36.7 C 10/24/20 03:00 Pulse 89 10/24/20 03:00 Resp 16 10/24/20 03:00 BP 122/76 10/24/20 03:00 Pulse Ox 98 10/24/20 03:00 Weight - Most Recent: 54.885 kg Lab Results - Last 24 hrs: Laboratory Results - last 24 hr 10/23/20 Range/Units 05:45 WBC 12.62 H (3.98-10.04) K/mm3 RBC 3.15 L (3.98-5.22) M/mm3 Hgb 9.1 L (11.2-15.7) gm/dl Hct 27.4 L (34.1-44.9) % MCV 87.0 (79.4-94.8) fl MCH 28.9 (25.6-32.2) pg MCHC 33.2 (32.2-35.5) g/dl RDW Std Deviation 41.1 (36.4-46.3) fL Plt Count 211 (182-369) K/mm3 MPV 10.0 (9.4-12.3) fl Med Orders - Current: Current Medications Diphenhydramine HCl (Diphenhydramine 50 Mg/Ml Sdv) 25 mg IVPUSH Q6H PRN PRN Reason: Itching or Nausea Docusate Sodium (Docusate Sodium 100 Mg Cap) 100 mg PO Q12H PRN PRN Reason: Constipation Last Admin: 10/23/20 15:42 Dose: 100 mg Documented by: Ephedrine Sulfate (Ephedrine 50 Mg/Ml Sdv) 5 mg IVPUSH SEECOMMENT PRN PRN Reason: Other Ibuprofen (Ibuprofen 600 Mg Tab) 600 mg PO Q6H PRN PRN Reason: mild pain or fever Last Admin: 10/23/20 21:55 Dose: 600 mg Documented by: Oxycodone/Acetaminophen (Acetaminophen/Oxycodone 325-5 Mg Tab) 1 tab PO Q4H PRN PRN Reason: Pain (moderate 4-6) Last Admin: 10/23/20 02:44 Dose: 1 tab Documented by: Oxycodone/Acetaminophen (Acetaminophen/Oxycodone 325-5 Mg Tab) 2 tab PO Q4H PRN PRN Reason: Pain (severe 7-10) Last Admin: 10/22/20 14:28 Dose: 2 tab Documented by: Discontinued Medications Bupivacaine HCl (Bupivacaine 0.25% 10 Ml Sdv) 10 ml .ROUTE .STK-MED ONE Stop: 10/21/20 15:01 Citric Acid/Sodium Citrate (Citric Acid/Sodium Citrate Solution 30 Ml Cup) 30 ml PO ONETIME ONE Stop: 10/21/20 14:24 Last Admin: 10/21/20 14:30 Dose: 30 ml Documented by: Diphenhydramine HCl (Diphenhydramine 50 Mg/Ml Sdv) 25 mg IVPUSH Q6H PRN PRN Reason: pruritis Ephedrine Sulfate (Ephedrine 50 Mg/Ml Sdv) 5 mg IVPUSH ASDIRECTED PRN PRN Reason: Hypotension Last Admin: 10/21/20 09:26 Dose: 5 mg Documented by: Ephedrine Sulfate (Ephedrine 50 Mg/Ml Sdv) 5 mg IVPUSH ASDIRECTED PRN PRN Reason: Hypotension Fentanyl (Fentanyl 100 Mcg/2 Ml Sdv) 100 mcg EPIDUR Q3H PRN PRN Reason: Pain Last Admin: 10/21/20 08:12 Dose: 100 mcg Documented by: Fentanyl (Fentanyl 100 Mcg/2 Ml Sdv) Confirm Administered Dose 100 mcg .ROUTE .STK-MED ONE Stop: 10/21/20 14:28 Fentanyl (Fentanyl 100 Mcg/2 Ml Sdv) 50 mcg IVPUSH Q20M PRN PRN Reason: Pain Fentanyl/Bupivacaine HCl (Bupivacaine/Fentanyl/Ns 100 Ml Bag) 100 ml EPIDUR ASDIRECTED [facility] Last Admin: 10/21/20 08:12 Dose: 100 ml Documented by: Gentamicin Sulfate (Pharmacy To Dose - Gentamicin) 1 dose .XX ASDIRECTED [facility] Gentamicin Sulfate (Gentamicin 40 Mg/Ml 2 Ml Vial) Confirm Administered Dose 80 mg .ROUTE .[facility] ONE Stop: 10/21/20 14:29 Last Admin: 10/21/20 19:44 Dose: Not Given Documented by: Hydromorphone HCl (Hydromorphone 0.5 Mg/0.5 Ml Syringe) 0.5 mg IVPUSH Q10M PRN PRN Reason: Pain (severe 7-10) Oxytocin/Lactated Ringer's (Pitocin In Lr 10 Units/1,000 Ml) 10 unit in 1,000 mls @ 12 mls/hr IV TITRATE LASHAUN; Protocol Last Admin: 10/21/20 13:27 Dose: 2 munits/min, 12 mls/hr Documented by: Oxytocin/Lactated Ringer's (Pitocin In Lr 10 Units/1,000 Ml) 10 unit in 1,000 mls @ 500 mls/hr IV .CONTINUOUS [facility] Lactated Ringer's (Ringers, Lactated) 1,000 mls @ 40 mls/hr IV ASDIRECTED [facility] Last Admin: 10/21/20 11:30 Dose: 40 mls/hr Documented by: Clindamycin Phosphate 900 mg/ (Premix) 50 mls @ 100 mls/hr IV ONETIME ONE Stop: 10/21/20 14:45 Last Admin: 10/21/20 14:17 Dose: 100 mls/hr Documented by: Lactated Ringer's (Ringers, Lactated) Confirm Administered Dose 2,000 mls @ as directed .ROUTE .[facility] ONE Stop: 10/21/20 14:27 Gentamicin Sulfate 275 mg/ (Sodium Chloride) 106.875 mls @ 106.875 mls/hr IV ONETIME ONE Stop: 10/21/20 15:59 Last Admin: 10/21/20 14:30 Dose: 106.875 mls/hr Documented by: Dextrose/Lactated Ringer's (Dextrose 5%-Lactated Ringers) 1,000 mls @ 125 mls/hr IV ASDIRECTED [facility] Stop: 10/22/20 02:07 Last Admin: 10/21/20 20:53 Dose: 125 mls/hr Documented by: Azithromycin 500 mg/ Sodium (Chloride) 250 mls @ 250 mls/hr IV ONETIME ONE Stop: 10/21/20 15:39 Last Admin: 10/21/20 14:42 Dose: 250 mls/hr Documented by: Ketorolac Tromethamine (Ketorolac 30 Mg/Ml Sdv) Confirm Administered Dose 30 mg .ROUTE .STK-MED ONE Stop: 10/21/20 14:27 Ketorolac Tromethamine (Ketorolac 30 Mg/Ml Sdv) 30 mg IVPUSH Q6H [facility] Stop: 10/22/20 09:16 Last Admin: 10/22/20 09:15 Dose: 30 mg Documented by: Lidocaine/Epinephrine (Lidocaine 2% With Epinephrine 1:200,000 20 Ml Sdv) Confirm Administered Dose 20 ml .ROUTE .STK-MED ONE Stop: 10/21/20 14:27 Metoclopramide HCl (Metoclopramide 10 Mg/2 Ml Sdv) 10 mg IVPUSH ONETIME ONE Stop: 10/21/20 14:24 Last Admin: 10/21/20 14:30 Dose: 10 mg Documented by: Miscellaneous Medication (Phenylephrine Hcl In 0.9% Nacl 1 Mg/10 Ml Syringe) 0.1 mg IVPUSH Q10M PRN PRN Reason: Hypotension Miscellaneous Medication (Phenylephrine Hcl In 0.9% Nacl 1 Mg/10 Ml Syringe) Confirm Administered Dose 1 mg .ROUTE .STK-MED ONE Stop: 10/21/20 14:27 Miscellaneous Medication (Phenylephrine Hcl In 0.9% Nacl 1 Mg/10 Ml Syringe) 0.1 mg IVPUSH Q10M PRN PRN Reason: Hypotension Miscellaneous Medication (Phenylephrine Hcl In 0.9% Nacl 1 Mg/10 Ml Syringe) Confirm Administered Dose 1 mg .ROUTE .STK-MED ONE Stop: 10/21/20 15:19 Misoprostol (Misoprostol 25 Mcg (1/4 Of 100 Mcg) Tab) 25 mcg VAG Q4H PRN PRN Reason: cervical ripening Morphine Sulfate (Morphine Pf 10 Mg/10 Ml Sdv) Confirm Administered Dose 10 mg .ROUTE .STK-MED ONE Stop: 10/21/20 14:28 Nalbuphine HCl (Nalbuphine 10 Mg/1 Ml Vial) 10 mg IVPUSH Q2H PRN PRN Reason: Pain Ondansetron HCl (Ondansetron 4 Mg/2 Ml Sdv) 4 mg IVPUSH Q4H PRN PRN Reason: Nausea/Vomiting Ondansetron HCl (Ondansetron 4 Mg/2 Ml Sdv) 4 mg IVPUSH ONETIME PRN PRN Reason: Nausea/Vomiting Ondansetron HCl (Ondansetron 4 Mg/2 Ml Sdv) Confirm Administered Dose 4 mg .ROUTE .[email or web address] ONE Stop: 10/21/20 14:27 Ondansetron HCl (Ondansetron 4 Mg/2 Ml Sdv) 4 mg IVPUSH ONETIME PRN PRN Reason: Nausea/Vomiting Oxytocin (Oxytocin 10 Units/1 Ml Sdv) Confirm Administered Dose 10 unit .ROUTE [email or web address] ONE Stop: 10/21/20 14:27 Sodium Chloride (Sodium Chloride 0.9% 10 Ml Syringe) 10 ml FLUSH ASDIRECTED PRN PRN Reason: Keep Vein Open
[2020-10-24] MEDS: Docusate Sodium 100 MG Cap PO PRN (09:34)
[2020-10-24] MEDS: Acetaminophen/oxyCODONE 325-5 MG Tab PO PRN (09:34)
== END 2020-10-24 11:30 | disposition home or self-care (01) | DRG 788 ==
LOC: JD.OBCHECK 06:29 → JD.OB 06:30 → JD.OBCHECK 06:31 → OBSVTOIN 14:48 → JD.OB 14:49
PROVIDERS: ADMIT Obstetrics & Gynecology; ATTEND Obstetrics & Gynecology
PROC: 10D00Z1 Extraction of Products of Conception, Low, Open Approach (ICD-10-PCS; principal; 2020-10-21)
PROC: 10907ZC Drainage of Amniotic Fluid, Therapeutic from Products of Conception, Via Natural or Artificial Opening (ICD-10-PCS; 2020-10-21)
DX: O48.0 Post-term pregnancy (principal); Z37.0 Single live birth; Z3A.41 41 weeks gestation of pregnancy; O76 Abnormality in fetal heart rate and rhythm complicating labor and delivery; O66.5 Attempted application of vacuum extractor and forceps; Z20.822 Contact with and (suspected) exposure to COVID-19; Z79.899 Other long term (current) drug therapy; Z88.8 Allergy status to other drugs, medicaments and biological substances
CPT/HCPCS: 01967; 01968; 36415; 36600; 51702; 59025; 82803; 85027; 85461; 86850; 86900; 86901; 94762; 99140; A9270-GY; J0456; J1580; J1885; J2270; J2370; J2405; J2590; J2765; J2790; J3010; J3490; J7050; J7120; J7121; U0002